=== PATIENT | female | born 1960 | race Caucasian/White ===

== ENCOUNTER 2021-10-22 11:05 | Outpatient (CLI) | payer BC ==
[2021-10-22 21:49] LABS: SARS-CoV-2 PCR by NAA Not Detected (NotDetected)
== END 2021-10-22 11:06 | disposition home or self-care (01) ==
LOC: CSHLAB 11:05
PROVIDERS: ATTEND Internal Medicine Critical Care Medicine
DX: Z20.822 Contact with and (suspected) exposure to COVID-19 (principal); J84.10 Pulmonary fibrosis, unspecified
CPT/HCPCS: U0003; U0005

== ENCOUNTER 2021-10-25 12:38 | Outpatient (CLI) | payer BC | END 2021-10-25 12:39 | disposition home or self-care (01) | LOC: CSHCP 12:38 | PROVIDERS: ATTEND Internal Medicine Critical Care Medicine | DX: J84.10 Pulmonary fibrosis, unspecified (principal); J84.9 Interstitial pulmonary disease, unspecified; J98.4 Other disorders of lung | CPT/HCPCS: 71250; 94010; 94726; 94729; 94760 ==